=== PATIENT | male | born 1970 | race Caucasian/White ===

== ENCOUNTER 2021-02-03 10:29 | Emergency (ER) | payer OTHER ==
[~2021-02-03] VITALS: Ht 172.7 cm; Wt 79.4 kg
[2021-02-03] MEDS ORDERED: ZESTRIL5 MG (10:38)
[2021-02-03] MEDS ORDERED: MEDROLPACK PO (11:11)
[2021-02-03] MEDS ORDERED: BUTALB-ACETAMI1 EAC2 PO (11:14)
== END 2021-02-03 11:28 | disposition home or self-care (01) ==
LOC: ER 10:29
DX: U07.1 COVID-19 (principal); R51.9 Headache, unspecified